=== PATIENT | female | born 1975 | race Caucasian/White ===

== ENCOUNTER 2016-11-14 19:24 | Emergency (ER) | payer MEDICAID, OTHER ==
[~2016-11-14] VITALS: Ht 160 cm; Wt 45.8 kg
[2016-11-14 19:39] VITALS: BP 102/63
[2016-11-14 19:57] LABS: APPEARANCE,URINE CLEAR; KETONES,URINE NEGATIVE (NEGATIVE); LEUKOCYTE ESTERASE ,URINE 3+ (NEGATIVE); NITRITE,URINE NEGATIVE (NEGATIVE); PH,URINE 8 (4.5-8.0); PROTEIN,URINE NEGATIVE (NEGATIVE); UROBILINOGEN,URINE NORMAL MG/DL (0.0-1.0)
[2016-11-14 20:17] LABS: BACTERIA,URINE FEW /HPF; SQUAMOUS EPITHELIAL CELL,UR MODERATE /LPF (NONE/OCC)
[2016-11-14 20:25] LABS: BASOPHILS % (AUTO) 1.2 % (0.0-2.0); EOSINOPHILS % (AUTO) 1.2 % (0.0-3.0); LYMPHOCYTES % (AUTO) 31.3 % (20.0-45.0); MEAN CORPUSCULAR HEMOGLOBIN 33.9 PG (27.0-31.0); MEAN CORPUSCULAR HGB CONC 35.3 G/DL (32.0-36.0); MEAN CORPUSCULAR VOLUME 96 FL (80-99); MEAN PLATELET VOLUME 7.4 FL (6.5-10.1); MONOCYTES % (AUTO) 9.1 % (1.0-10.0); NEUTROPHILS % (AUTO) 57.3 % (45.0-75.0); PLATELET COUNT 213 K/UL (150-450); RED BLOOD COUNT 3.67 M/UL (4.20-5.40); RED CELL DISTRIBUTION WIDTH 11.6 % (11.6-14.8); WHITE BLOOD COUNT 5.9 K/UL (4.8-10.8)
[2016-11-14] MEDS ORDERED: Morphine Sulfate 4mg/ml Inj IVP ONE (20:30)
[2016-11-14] MEDS ORDERED: DiphenhydrAMINE 50mg/ml Inj IVP ONE ×2 (20:30→22:30)
[2016-11-14 20:37] LABS: ALANINE AMINOTRANSFERASE 12 U/L (3-33); ALBUMIN/GLOBULIN RATIO 1.4 (1.0-2.7); ANION GAP 13 (5-15); ASPARTATE AMINO TRANSFERASE 20 U/L (5-40); CALCIUM 9.4 mg/dL (8.6-10.2); CARBON DIOXIDE 25 mEQ/L (20-30); CHLORIDE 99 mEQ/L (98-107); CREATININE 0.5 mg/dL (0.5-0.9); GLOMERULAR FILTRATION RATE > 60 mL/min (>60); HEMOLYSIS 10; POTASSIUM 3.7 mEQ/L (3.4-4.9); SODIUM 137 mEQ/L (135-145); TOTAL PROTEIN 7.3 g/dL (6.6-8.7)
--- NOTE | 2016-11-14 21:57 | Emergency Room Report ---
History of Present Illness General Chief Complaint: Abdominal Pain Source: Patient, EMS Present Illness HPI 41-year-old female presents emergency department complaining of 10 on a 10 in severity left-sided flank pain as well as left lower quadrant pain x2.5 weeks. Patient reports past history of ovarian cancer. Patient reports nausea she denies vomiting. Patient's issues recently evaluated at [facility] and was discharged. Patient states she has history of UTI and was treated with Cipro. Patient believes she may still have an infection patient denies dysuria or reports some frequency he denies hematuria. Patient denies . Patient denies vaginal discharge or pelvic pain. Patient denies rash recent travel or ill contacts. Patient states that Reglan has not worked for her vomiting and states Ativan is the only medication that works in addition to Dilaudid being the only medication that helps subsided her pain. Denies blood in the stool denies constipation, diarrhea or black tarry stools. Denies CP, Palpitations, LOC, AMS, dizziness, Changes in Vision, Sensation, paresthesias, or a sudden severe headache. Allergies: Coded Allergies: PENICILLINS (Verified Allergy, Unknown, 11/14/16) Patient History Past Medical History: see triage record Past Surgical History: none Pertinent Family History: none Last Menstrual Period: IM ON MY MENOPOSE Now: No Reviewed Nursing Documentation: PMH: Agreed, PSxH: Agreed Review of Systems All Other Systems: negative except mentioned in HPI Physical Exam Vital Signs Date Time Temp Pulse Resp B/P Pulse Ox O2 Delivery O2 Flow Rate FiO2 11/14/16 19:18 98.8 89 18 102/63 100 Room Air Sp02 EP Interpretation: reviewed, normal General Appearance: alert, GCS 15, non-toxic, moderate distress - pt. groaning in pain, difficult to perform abdominal exam as pt. appears to have pain everywhere. pt. gagging. Head: normocephalic, atraumatic Eyes: bilateral eye PERRL, bilateral eye normal inspection ENT: hearing grossly normal, normal pharynx, no angioedema, normal voice Neck: full range of motion, supple/symm/no masses Respiratory: chest non-tender, lungs clear, normal breath sounds, speaking full sentences Cardiovascular #1: regular rate, rhythm, no edema Cardiovascular #2: 0 carotid (R), 0 carotid (L), 0 radial (R), 0 radial (L), 0 femoral (R), 0 femoral (L), 0 dorsalis pedis (R), 0 dorsalis pedis (L) Gastrointestinal: normal bowel sounds, soft, no rebound, guarding, tenderness - significant ttp to light touch in al 4 quadrants of the abdomen. Rectal: deferred Genitourinary: normal inspection, no CVA tenderness Musculoskeletal: back normal, gait/station normal, normal range of motion, non- tender Neurologic: alert, oriented x3, responsive, motor strength/tone normal, sensory intact, speech normal Psychiatric: judgement/insight normal, memory normal, mood/affect normal, anxious Skin: normal color, no rash, warm/dry, well hydrated Lymphatic: no adenopathy Medical Decision Making PA Attestation Dr. cazares is my supervising Physician whom patient management has been discussed with. Diagnostic Impression: Primary Impression: Urinary tract infection Qualified Codes: N30.01 - Acute cystitis with hematuria Additional Impressions: Abdominal pain Qualified Codes: R10.32 - Left lower quadrant pain Ileus, unspecified ER Course 41-year-old female presents emergency department complaining of 10 on a 10 in severity left-sided flank pain as well as left lower quadrant pain x2.5 weeks. Patient reports past history of ovarian cancer. Patient reports nausea she denies vomiting. Patient's issues recently evaluated at [facility] and was discharged. Patient states she has history of UTI and was treated with Cipro. Patient believes she may still have an infection patient denies dysuria or reports some frequency he denies hematuria. Patient denies . Patient denies vaginal discharge or pelvic pain. Patient denies rash recent travel or ill contacts. Patient states that Reglan has not worked for her vomiting and states Ativan is the only medication that works in addition to Dilaudid being the only medication that helps subsided her pain. Pt reports intermittent constipation and states she is prescribed opiates at home. denies stool softener. Denies blood in the stool denies diarrhea or black tarry stools. Patient requesting beta hCG Quant level, states that this is primary lab that indicates return of her cancer which is typically followed by PCP which has not been done in quite some time. pt worried that abdominal pain signifies return of CA. Ddx considered but are not limited to Diverticulitis, acute appy, diarrhea,UC, PUD, GE, pancreatitis, gallstone Vital signs: are WNL, pt. is afebrile H&PE are most consistent with possible UTI, will r/o stone and acute abdomen. pt. appears in moderate distress, no episodes of vomiting. noted. ORDERS: -CBC, CMP, lipase: All unremarkable no evidence of acute infection, electrolytes are ok, good renal function: pt. is a candidate for IV contrast. -UA: many WBC's and Leuk's few bacteria indicative of UTI -Urine HCG: Negative -BetaHCG Quant: less than 1 -CT Abdomen Pelvis With IV and Oral Contrast : mild distention of proximal ileum with possible ileus LUQ per preliminary read by radiologist, review of imaging with Dr. Stevenson moderate amount of stool noted. ED INTERVENTIONS: - 4mg Morphine with 25mg Benadryl IVPB. -Zofran 4mg. -Benadryl 25mg -Lactulose 30mg PO - Fleet's Enema Discussed with patient the results of her laboratory work and imaging at this time patient feels comfortable going home and treating her symptoms and constipation and possible ileus. instructed the patient that if symptoms worsen or new symptoms occur to return to the ED. pt will be treated for UTI, constipation, and was given strict follow up or return to ED precautions for possible ileus. pt demonstrated understanding and agreement with proposed treatment plan by giving verbal agreement. DISCHARGE: At this time pt. is stable for d/c to home. Will provide printed patient care instructions, and any necessary prescriptions. Care plan and follow up instructions have been discussed with the patient prior to discharge. Labs Test 11/14/16 19:35 11/14/16 20:13 Urine Color Pale yellow Urine Appearance Clear Urine pH 8 (4.5-8.0) Urine Specific Bentley 1.010 (1.005-1.035) Urine Protein Negative (NEGATIVE) Urine Glucose (UA) Negative (NEGATIVE) Urine Ketones Negative (NEGATIVE) Urine Occult Blood 2+ (NEGATIVE) Urine Nitrite Negative (NEGATIVE) Urine Bilirubin Negative (NEGATIVE) Urine Urobilinogen Normal MG/DL (0.0-1.0) Urine Leukocyte Esterase 3+ (NEGATIVE) Urine RBC 5-10 /HPF (0 - 2) Urine WBC 10-15 /HPF (0 - 2) Urine Squamous Epithelial Cells Moderate /LPF (NONE/OCC) Urine Bacteria Few /HPF (NONE) White Blood Count 5.9 K/UL (4.8-10.8) Red Blood Count 3.67 M/UL (4.20-5.40) Hemoglobin 12.5 G/DL (12.0-16.0) Hematocrit 35.3 % (37.0-47.0) Mean Corpuscular Volume 96 FL (80-99) Mean Corpuscular Hemoglobin 33.9 PG (27.0-31.0) Mean Corpuscular Hemoglobin Concent 35.3 G/DL (32.0-36.0) Red Cell Distribution Width 11.6 % (11.6-14.8) Platelet Count 213 K/UL (150-450) Mean Platelet Volume 7.4 FL (6.5-10.1) Neutrophils (%) (Auto) 57.3 % (45.0-75.0) Lymphocytes (%) (Auto) 31.3 % (20.0-45.0) Monocytes (%) (Auto) 9.1 % (1.0-10.0) Eosinophils (%) (Auto) 1.2 % (0.0-3.0) Basophils (%) (Auto) 1.2 % (0.0-2.0) Urine HCG, Qualitative Negative Sodium Level 137 mEQ/L (135-145) Potassium Level 3.7 mEQ/L (3.4-4.9) Chloride Level 99 mEQ/L (98-107) Carbon Dioxide Level 25 mEQ/L (20-30) Anion Gap 13 (5-15) Blood Urea Nitrogen 10 mg/dL (7-23) Creatinine 0.5 mg/dL (0.5-0.9) Estimat Glomerular Filtration Rate > 60 mL/min (>60) Glucose Level 95 mg/dL (74-106) Calcium Level 9.4 mg/dL (8.6-10.2) Total Bilirubin 0.6 mg/dL (0.0-1.2) Aspartate Amino Transf (AST/SGOT) 20 U/L (5-40) Alanine Aminotransferase (ALT/SGPT) 12 U/L (3-33) Alkaline Phosphatase 63 U/L (35-104) Total Protein 7.3 g/dL (6.6-8.7) Albumin 4.3 g/dL (3.5-5.2) Globulin 3.0 g/dL Albumin/Globulin Ratio 1.4 (1.0-2.7) Human Chorionic Gonadotropin, Quant < 1 mIU/mL Last Vital Signs Date Time Temp Pulse Resp B/P Pulse Ox O2 Delivery O2 Flow Rate FiO2 11/14/16 19:39 98.8 18 102/63 100 Room Air 11/14/16 19:18 89 Disposition: HOME, SELF-CARE Condition: Stable Scripts Ondansetron Odt* (ZOFRAN ODT*) 4 Mg Tab.rapdis 4 MG ORAL Q6H Y for Nausea & Vomiting, #12 TAB Prov: Sharee Sethi 11/14/16 Phenazopyridine Hcl* (PYRIDIUM*) 100 Mg Tablet 100 MG ORAL THREE TIMES A DAY for 4 Days, #12 TAB Prov: Sharee SethiAVickie 11/14/16 Cephalexin* (KEFLEX*) 500 Mg Capsule 500 MG ORAL EVERY 12 HOURS for 7 Days, #14 CAP 0 Refills Prov: Sharee Sethi 11/14/16 Docusate Sodium* (COLACE*) 100 Mg Capsule 100 MG ORAL THREE TIMES A DAY, #30 CAP Prov: Sharee Sethi 11/14/16 Referrals: [facility]ERR[facility] (PCP) Patient Instructions: Ileus, Urinary Tract Infection, [id number] Additional Instructions: Take medications as directed. Follow up with PCP in 72 hours, or GI Specialist. Return sooner to ED if new symptoms occur, or current symptoms become worse. - Please note that this Emergency Department Report was dictated using [employer] success director technology software, occasionally this can lead to erroneous entry secondary to interpretation by the dictation equipment. Sharee Sethi November 14, 2016 21:57
[2016-11-14] MEDS ORDERED: Phenazopyridine 200mg tab ORAL ONE (22:00)
[2016-11-14 22:30] VITALS: BP 105/69
[2016-11-14] MEDS ORDERED: Fleet's Enema 133ml RECTAL ONE (22:30)
[2016-11-14] MEDS ORDERED: Lactulose 20gm/30ml UDC ORAL ONE (22:30)
[2016-11-14] MEDS ORDERED: COLACE100 MG ORAL (22:31)
[2016-11-14] MEDS ORDERED: ZOFRAN ODT4 MG ORAL (22:31)
[2016-11-14] MEDS ORDERED: PHENAZOPYRIDIN100 MG ORAL (22:31)
[2016-11-14] MEDS ORDERED: CEPHALEXIN500 MG ORAL (22:31)
[2016-11-14 22:45] VITALS: BP 105/69
--- NOTE | 2016-11-15 15:04 | Diagnostic Imaging Report ---
Clinical Indication: Left flank pain of mild adnexal pain, history of ovarian carcinoma Technique: No oral contrast utilized, per emergency room physician request IV administration nonionic contrast. Venous phase spiral acquisition obtained through the abdomen and pelvis. Multiplanar reconstructions were generated. Total dose length product 567 mGycm. CTDIvol(s) 11 mGy. Dose reduction achieved using automated exposure control Comparison: None Findings: Lack of enteric contrast limits assessment of the GI tract. Considerable stool is seen throughout the colon. The appendix is not clearly demonstrated, but there are no findings to suggest acute appendicitis. No evidence of diverticulosis or diverticulitis. A single focally dilated proximal small bowel loop is seen in the left upper quadrant. The distal esophagus, stomach, adrenal are unremarkable. No free or loculated intraperitoneal air or fluid. The liver demonstrates a small area of focal fatty change in the usual location adjacent to the fissure for the ligamentum teres. The gallbladder, bile ducts, pancreas, spleen, adrenals, left kidney are unremarkable. The right kidney demonstrates a 1 cm interpolar region fluid attenuation cyst no retroperitoneal or mesenteric mass or adenopathy. The uterus and ovaries are surgically absent. No pelvic mass or adenopathy. Bladder is considerably distended. The included lung bases are clear. The bones are unremarkable except for a few small anterior spinal osteophytes Impression: Evidence of constipation. Single mildly dilated left upper quadrant small bowel loop. Most likely just transient, focal ileus also a possibility No definite acute process otherwise Possible constipation-correlate with clinical findings Distended bladder Surgically absent uterus and ovaries. No evidence of recurrent pelvic mass Other findings as noted, including small area of focal fatty change in the liver, right renal interpolar region cyst This agrees with the preliminary interpretation provided overnight by Dr. Jj The CT scanner at [facility] is accredited by the [employer] and the scans are performed using protocols designed to limit radiation exposure to as low as reasonably achievable to attain images of sufficient resolution adequate for diagnostic evaluation.
== END 2016-11-14 22:45 | disposition home or self-care (01) ==
LOC: EDBD 19:24 → EMR 19:52
DX: N30.01 Acute cystitis with hematuria (principal); R10.32 Left lower quadrant pain; K56.7 Ileus, unspecified; Z88.0 Allergy status to penicillin; Z85.43 Personal history of malignant neoplasm of ovary
CPT/HCPCS: 36415; 74177; 80053; 81003; 81025; 84702; 85025; 87086; 96374; 96375; 99284; J1200; J2270; J2405; Q9967